=== PATIENT | female | born 1970 | race Caucasian/White ===

== ENCOUNTER 2022-01-26 05:48 | Day surgery (SDC) | payer OTHER ==
[~2022-01-26] VITALS: Ht 162.6 cm; Wt 70.5 kg
--- NOTE | ~2022-01-26 | OR ---
[facility] [address], [place] [address] Draft DATE OF OPERATION: 01/26/2022 SURGEON: Jacinta Qureshi DO PROCEDURE: Total laparoscopic hysterectomy, bilateral salpingectomy with ExCITE, cystoscopy. OPHTHALMOLOGIST RETINA SPECIALIST: Dr. Castillo. PREOPERATIVE DIAGNOSIS: Endometrial hyperplasia, uterine fibroids, abnormal uterine bleeding, anxiety, hypertension. POSTOPERATIVE DIAGNOSIS: Endometrial hyperplasia, uterine fibroids, abnormal uterine bleeding, anxiety, hypertension. BLOOD LOSS: 75 mL. ANESTHESIA: General. COMPLICATIONS: None. FINDINGS: Fibroid uterus with large fibroid at the fundus as well as right lower uterine segment significantly distorting anatomy and obliterating access to the broad ligament on the right. Left fimbria adherent to left ovary. Otherwise, normal-appearing bilateral tubes and ovaries. Bladder normal in appearance. On cystoscopy, bladder dome intact. No evidence of injury. Bilateral ureteral jets visualized. INDICATION: The patient is a 52-year-old female with history of endometrial hyperplasia without atypia and uterine fibroids. She declined medical management of endometrial hyperplasia and strongly desired definitive surgical management. Risks, benefits, and alternatives were discussed. She elected to proceed. Surgery was initially postponed once due to a positive COVID screening test while the patient was asymptomatic. She rescheduled since PATIENT NAME: SAMUEL JOHN OPERATIVE REPORT DATE OF : 66 REPORT #: [id number] PHYSICIAN: JACINTA QURESHI DO PCP: MARISA CARRINGTON NP REPORT IS CONFIDENTIAL AND NOT TO BE RELEASED WITHOUT AUTHORIZATION [facility] [address], [place] [address] Draft possible time. All questions were answered to the best of my ability to her parent's satisfaction. She elected to proceed. DESCRIPTION OF PROCEDURE: The patient was taken to the OR, where she was given 2 g Ancef, 5000 units heparin subcutaneously, and was placed under general anesthesia. She was positioned in dorsal lithotomy and prepped and draped in a normal sterile fashion. Leyva catheter was placed. Weighted speculum was placed in the vagina and anterior lip of the cervix was grasped with an Allis clamp. The cervix was easily sequentially dilated to accommodate a VCare uterine manipulator, which was placed without difficulty. Surgeon's gloves were then changed and attention was turned to the abdomen. Local anesthetic was injected in the infraumbilical fold, where a 3 cm incision was made with a scalpel. This was carried down to the underlying layer of fascia with blunt and sharp dissection with hemostats and Metzenbaum scissors. The fascia was grasped with hemostats, elevated and incised with Metzenbaum scissors. The inferior and superior margins were each grasped with the stay suture of 0 Vicryl. The peritoneum was entered bluntly and Noble trocar was placed without difficulty. Abdomen was insufflated with CO2 gas. Pneumoperitoneum was achieved and correct placement was confirmed with the laparoscope. Under direct visualization, local anesthetic was injected in the left lower abdominal quadrant. A 5 mm incision was made with a scalpel. A 5 mm trocar was placed under direct visualization without difficulty or complication. In a similar manner, local anesthetic was injected in the right lateral abdomen. Incision was made with a scalpel to accommodate a 12 mm trocar, which was placed under direct visualization without difficulty or complication. Trendelenburg positioning and blunt graspers were then used to facilitate the pelvis with findings as noted above, as well as retraction of bowel from the pelvis. Left fimbriated end of the tube was grasped and elevated, carefully dissected off the ovary using LigaSure, bipolar cautery, which was used for the remainder of the case, except where otherwise noted. Mesosalpinx was cauterized and cut adjacent to the tube down to the level of the cornu, where it was transected. The left tube was removed from the abdomen under direct visualization. In a similar manner, fimbriated end of right fallopian tube was grasped and elevated. The mesosalpinx was cauterized and cut to the level of cornu, where tube was then transected and removed from the abdomen also under direct visualization. Right utero-ovarian ligament was cauterized repeatedly and then cut. The round ligament was cauterized and cut and the broad ligament was entered on the left, dissected inferiorly first with a posterior leaf due to excellent visualization against the level of the left uterosacral ligament, then brought across medially towards the right uterosacral ligament. In a similar manner, the anterior leaf of the broad ligament was dissected to the level of the cardinal ligaments and brought across anteriorly initiating formation of the bladder flap. The VCare manipulator cup was easily palpable at all times during this dissection. Uterine arteries were skeletonized and cauterized and cut with excellent hemostasis noted. Attention was then turned to the right side. The right utero-ovarian ligament was PATIENT NAME: SAMUEL JOHN OPERATIVE REPORT DATE OF : 66 REPORT #: [id number] PHYSICIAN: JACINTA QURESHI DO PCP: MAIRSA CARRINGTON NP REPORT IS CONFIDENTIAL AND NOT TO BE RELEASED WITHOUT AUTHORIZATION [place] [id number] Draft cauterized and cut without difficulty. The round ligament was entered. Next, proximal to the uterus, however, the broad ligament could not be easily entered due to the location of the right lateral lower uterine segment fibroid, which significantly distorted the broad ligament overlying the ureter. The serosa overlying the fibroid was dissected, staying high and anterior to the level of the cardinal ligaments, where this was brought across to ct. The prior bladder flap dissection along the bladder debris released anteriorly and inferiorly. In a similar manner, the serosa overlying the fibroid was dissected down posteriorly to meet the prior dissection at the level of the right uterosacral ligament. The serosa and broad ligament were then peeled back from the lateral aspect of the fibroid, allowing skeletonization of the uterine vessels. These were then cauterized and cut with excellent hemostasis resulting and allowed for the colpotomy to be safely performed using the Harmonic Sonicision device. Once free, attempts were made to deliver the uterus vaginally. However, due to the size and shape of the uterus, these attempts were unsuccessful and decision was made to proceed with ExCITE procedure. Vaginal packing was placed. Surgeon's gloves were changed and attention was returned to the abdomen. A size 15 EndoCatch bag was introduced through the Noble trocar and the uterus and cervix were placed within the EndoCatch bag and brought up through the infraumbilical incision. Ronaldo retractor was then placed. Uterus was grasped with a single-tooth tenaculum under direct visualization and uterus and fibroids were sequentially cut with 11 blade scalpel in a C shape allowing complete excision of the uterus, cervix, and fibroids. Once the ExCITE procedure was complete, Ronaldo retractor was removed. EndoCatch bag was removed. The Noble trocar was replaced without difficulty and attention was returned to the pelvis, which was suction irrigated with warm sterile saline. The vaginal cuff was closed with Endo Stitch device and V-Loc suture working from right uterosacral ligament to left uterosacral ligament and back towards midline as per monogram maker instructions with resulting excellent hemostasis. The pelvis was suction irrigated again, reinspected. Pneumoperitoneum was evacuated. The fascial incisions were closed with 0 Vicryl. Skin was closed with 4-0 Monocryl and cystoscopy was performed. Vaginal packing was removed. Leyva catheter was removed. Cystoscope was introduced into the bladder, where dome was noted to be intact. The entire bladder was free of injury. Evidence of suture or puckering. Bilateral ureteral jets were visualized effluxing vigorously. All instrumentation was removed. Leyva catheter was replaced. Sponge and instrument counts were correct and the patient was taken to recovery in stable and satisfactory condition. Jacinta Qureshi DO EM/MODL PATIENT NAME: SAMUEL JOHN OPERATIVE REPORT DATE OF : 66 REPORT #: [id number] PHYSICIAN: JACINTA QURESHI DO PCP: MARISA CARRINGTON NP REPORT IS CONFIDENTIAL AND NOT TO BE RELEASED WITHOUT AUTHORIZATION [facility] [address] [place] [id number] Draft /[id number] Copies: ~ PATIENT NAME: SAMUEL JOHN OPERATIVE REPORT DATE OF : 66 REPORT #: [id number] PHYSICIAN: JACINTA QURESHI DO PCP: MARISA CARRINGTON NP REPORT IS CONFIDENTIAL AND NOT TO BE RELEASED WITHOUT AUTHORIZATION
[~2022-01-26 05:48] MED LIST: CELEXA20 MG PO; HYDROXYZINE HCL25 MG PO; KLONOPIN0.5 MG PO; LISINOPRIL-HCT1 EAC2 PO; MOVE FREE ULTR1 EAC2 PO
--- NOTE | 2022-01-26 11:18 | NUR ---
01/26/22 1118 Mandy Lee 1058-PT TO PACU IN SUPINE POSITION EYES CLOSED WITH ORAL AIRWAY IN PLACE. BREATHING EASY AND UNLABORED. SP02>95% ON 10L O2 VIA SIMPLE MASK. 1104- PT OPENS EYES AND MOUTH ON COMMAND. ORAL AIRWAY REMOVED. PT ENCOURAGED TO TAKE DEEP BREATHS. PT FALLS QUICKLY BACK TO SLEEP WITHOUT VERBAL AND TACTILE STIMULI. BREATHING EASY AND UNLABORED. SPO2 >95% ON 6 L O2 VIA SIMPLE MASK. 1115- PT TALKING WITH MD AT BEDSIDE. PT AWAKE, BUT DROWSY. BREATHING EASY AND UNLABORED. SPO2 >95% O2 TITRATED DOWN TO ROOM AIR.
--- NOTE | 2022-01-26 12:00 | NUR ---
PATIENT BACK TO ROOM FROM PACU ON RA. RECEIVED REPORT FROM DORIAN RODRIGUEZ. PATIENT IS DROWSY. RATES PAIN 6/10, DESCRIBES PAIN CRAMPING AND BURNING. DENIES NAUSEA. RIGHT AND LEFT LAP SITE ARE CLEAN, DRY, AND INTACT. UMBILICAL SITE HAS SMALL AMOUNT OF DRAINAGE ON BANDAID. MARY PAD CLEAN, DRY, AND INTACT. PATIENT HAS ICE TO ABDOMEN. LOI HUGGER TURNED ON. PATIENT EATING CRACKERS AND ICE CHIPS. CALL LIGHT WITHIN REACH.
--- NOTE | 2022-01-26 13:01 | NUR ---
PATIENT IS DROWSY LAYING IN BED WITH EYES CLOSED. RATES HER PAIN A 6/10 BUT DECLINES SECOND PAIN PILL AT THIS TIME, STATES SHE WOULD LIKE TO REST FOR NOW. DENIES NAUSEA. RIGHT AND LEFT LAP SITES ARE CLEAN, DRY, AND INTACT. UMBILICAL SITE HAS SMALL AMOUNT OF DRAINAGE. LOI HUGGER TURNED ON. GOMEZ CATH DRAINING YELLOW URINE. CALL LIGHT WITHIN REACH.
--- NOTE | 2022-01-26 14:07 | NUR ---
1350- DRAINED 650ML FROM GOMEZ CATH. 1352-PATIENT UP TO BEDSIDE. PATIENT DENIES NAUSEA OR DIZINESS. PATIENT STANDS UP AND WALKS 4 STEPS AND STATES SHE IS DIZZY. 1355-PATIENT BACK TO BED AND LAYING DOWN. STATES FEELS BETTER. RATES PAIN 2/10. PATIENT PROVIDED MORE CRACKERS PER HER REQUEST.
--- NOTE | 2022-01-26 14:10 | NUR ---
PATIENT LAYING IN BED AND WATCHING TV. DENIES NAUSEA OR DIZZINESS NOW. RATES PAIN 2/10. UMBILICAL SITE WITH SMALL AMOUNT OF DRAINAGE AND IS REINFORCED WTIH GAUZE AND TAPE. RIGHT AND LEFT LAP SITS CLEAN, DRY, AND INTACT. MARY PAD CLEAN, DRY AND INTACT. CALL LIGHT WITHIN REACH.
--- NOTE | 2022-01-26 14:20 | NUR ---
1420-250ML OF YELLOW URINE DRAINED FROM GOMEZ CATH. GOMEZ CATH REMOVED AND WNL. PATIENT UP TO THE BATHROOM AND ABLE TO URINATE A SMALL AMOUNT OF URINE. PATEINT TOLERATED AMBULATION WITH 1 RN ASSIST. PATIENT BACK TO BED AND CALL LIGHT WITHIN REACH.
--- NOTE | 2022-01-26 15:03 | NUR ---
PATIENT LAYING IN BED WATCHING TV. RATES PAIN 3/10. DENIES NAUSEA AND DIZZINESS. RIGHT AND LEFT LAP SITES HAVE MINIMAL DRAINAGE ON THE BANDAIDS. UMBILICAL SITE HAS MODERATE AMOUNT OF DRAINAGE ON 2X2 GAUZE. REFILLED WATER FOR PATIENT. CALL LIGHT WITHIN REACH.
--- NOTE | 2022-01-26 15:35 | NUR ---
PATIENT AMBULATES TO BATHROOM WITH 1 RN ASSIST. GAIT STEADY AND TOLERATED WELL. PATIENT VOIDED 300ML. PATIENT READY TO GO HOME.
--- NOTE | 2022-01-26 15:53 | NUR ---
PROVIDED PATIENT WITH DISCHARGE INSTRUCTIONS. ALL QUESTIONS ANSWERED. PATIENT AMBULATES TO WHEELCHAIR. PROVIDED WHEELCHAIR RIDE TO FRONT OF HOSPITAL WHERE FRIEND WAS WAITING WITH CAR.
--- NOTE | 2022-01-27 12:22 | PATH ---
[facility] [address], [place] [address] Signed SPECIMEN(S): A UTERUS, CERVIX, BILAT FALLOPIAN TUBES SPECIMEN SOURCE: A. UTERUS, CERVIX, BILAT FALLOPIAN TUBES CLINICAL HISTORY: Endometrial hyperplasia without atypia, abnormal uterine bleeding, uterine leiomyoma. FINAL PATHOLOGIC DIAGNOSIS: Uterus, cervix, and bilateral fallopian tubes, hysterectomy and bilateral salpingectomy: - Cervix: No histopathologic abnormality. - Endometrium: Proliferative endometrium. - Myometrium: Leiomyomas (fragments, 8.0 cm in greatest aggregate dimension). - Fallopian tubes: Two benign fallopian tubes, one with a paratubal cyst. - No evidence of malignancy. NAL:cml:C2NR MICROSCOPIC EXAMINATION: Histologic sections of all submitted blocks are examined by light microscopy. These findings, together with the gross examination, support the pathologic diagnosis. GROSS DESCRIPTION: The specimen, labeled "WC, A," and designated on the requisition as "uterus, cervix, bilateral fallopian tubes", is received in formalin and consists of a morcellated uterus (231 grams, 13.0 x 12.0 x 4.5 m in aggregate) with detached undesignated fimbriated fallopian tube segments (5.0 cm in length and ranging in diameter from 0.8 to 1.4 cm, and 5.7 cm in length and ranging in diameter from 0.7 to 1.3 cm). One fallopian tube segment is arbitrarily inked blue and both segments are serially sectioned to reveal red-brown cut surfaces. The uninked fallopian tube has one attached paratubal cyst that measures 0.7 cm in greatest dimension. The fimbriae are submitted entirely. The specimen also shows pink-tolbert to hemorrhagic cervical tissue, tolbert smooth uterine serosa, pink-tolbert trabeculated myometrium, red-brown endometrium (up to 0.2 cm in thickness) and white-tolbert whorled nodular tissue (8.0 x 6.0 x 2.7 cm in aggregate). [employer] sections are submitted as follows: PATIENT NAME: SAMUEL JOHN PATHOLOGY DATE OF : 66 REPORT #: [id number] PHYSICIAN: [facility] PATHOLOGY PCP: MARISA CARRINGTON NP REPORT IS CONFIDENTIAL AND NOT TO BE RELEASED WITHOUT AUTHORIZATION [facility] [address], [place] [address] Signed (A1-A2) fallopian tubes (A3) cervix (A4) endomyometrium (A5-A6) whorled tissue AC (under the direct supervision of a pathologist) The Gross Description was prepared using a voice recognition system. The report was reviewed for accuracy; however, sound-alike word errors, addition and/or deletions may occur. If there is any question about this report, please contact Client Services. PERFORMING LABORATORY: The technical component was performed by [employer], [address] [place] [id number] (CLIA# [id number]). Professional interpretation was performed by [facility], [address] [place] [id number] (CLIA# [id number]). Diagnostician: Meme Zuñiga MD Pathologist Electronically Signed 01/27/2022 Copies: ~ PATIENT NAME: SAMUEL JOHN PATHOLOGY DATE OF : 66 REPORT #: [id number] PHYSICIAN: [facility] PATHOLOG[facility] PCP: MARISA CARRINGTON NP REPORT IS CONFIDENTIAL AND NOT TO BE RELEASED WITHOUT AUTHORIZATION
== END 2022-01-26 15:53 | disposition home or self-care (01) ==
LOC: OPS 05:48 → DS 05:48 → OPS 10:00
PROVIDERS: ATTEND Obstetrics & Gynecology
PROC: 0UT94ZZ Resection of Uterus, Percutaneous Endoscopic Approach (ICD-10-PCS; principal; 2022-01-26 07:30)
PROC: 0UT74ZZ Resection of Bilateral Fallopian Tubes, Percutaneous Endoscopic Approach (ICD-10-PCS; 2022-01-26 07:30)
DX: N85.00 Endometrial hyperplasia, unspecified (principal); D25.9 Leiomyoma of uterus, unspecified; N93.9 Abnormal uterine and vaginal bleeding, unspecified; N83.8 Other noninflammatory disorders of ovary, fallopian tube and broad ligament; F41.9 Anxiety disorder, unspecified; I10 Essential (primary) hypertension; Z98.51 Tubal ligation status; Z87.891 Personal history of nicotine dependence
CPT/HCPCS: J0330; J0690; J1100; J1644; J1885; J2001; J2250; J2405; J2704; J3010; J7121